=== PATIENT | female | born 1970 | race Caucasian/White ===

== ENCOUNTER → 2020-04-17 | Outpatient (CLI) | payer OTHER ==
[~2020-04-17] MED LIST: FLOMAX0.4 MG PO; IBUPROFEN 600600 M1 PO; NORCO 5-325 TA1 EAC1 PO
== END ==
LOC: LAB 13:26
PROVIDERS: ATTEND Nurse Practitioner
DX: Z20.828 Contact with and (suspected) exposure to other viral communicable diseases (principal)

== ENCOUNTER → 2020-11-24 | Outpatient (CLI) | payer OTHER | LOC: MRI 14:54 | PROVIDERS: ATTEND Family Medicine | DX: M47.27 Other spondylosis with radiculopathy, lumbosacral region (principal); M47.26 Other spondylosis with radiculopathy, lumbar region; G96.191 Perineural cyst ==

== ENCOUNTER → 2021-06-12 | Outpatient (CLI) | payer OTHER ==
[~2021-06-12] MED LIST changes: +HYDROCODON-ACE1 EAC7 PO; +IBUPROFEN 800800 M1 PO; +ZOFRAN ODT4 MG DISSOLVE
== END ==
LOC: CAT 09:45
PROVIDERS: ATTEND Nurse Practitioner
DX: N20.1 Calculus of ureter (principal); N94.89 Other specified conditions associated with female genital organs and menstrual cycle; R31.0 Gross hematuria

== ENCOUNTER 2021-06-16 11:25 | Emergency (ER) | payer OTHER ==
[~2021-06-16] VITALS: Ht 172.7 cm; Wt 90.7 kg
[2021-06-16 12:36] LABS: URINE BLOOD 3+ (Negative); URINE CLARITY CLEAR; URINE COLOR YELLOW; URINE GLUCOSE-RANDOM* NEGATIVE (Negative); URINE KETONES NEGATIVE (Negative); URINE LEUKOCYTES-REFLEX NEGATIVE (Negative); URINE NITRITE-REFLEX NEGATIVE (Negative); URINE PROTEIN (DIPSTICK) 1+ (Negative); URINE SPECIFIC GRAVITY >= 1.030 (1.005-1.035); URINE UROBILINOGEN 0.2 E.U./dl (0.2-1.0)
[2021-06-16 12:39] LABS: ICTOTEST (BILI CONFIRMATORY) Negative (Negative); URINE BILIRUBIN NEGATIVE (Negative)
[2021-06-16 12:48] LABS: BACTERIA-REFLEX 1-9 Few /HPF (None Seen); CASTS None Seen /LPF (None Seen); CRYSTALS None Seen /LPF (None Seen); MUCUS 0-3 Light strn/LPF (None Seen); SQUAMOUS >10 Many /LPF (0-3); URINE WBC-REFLEX 0-5 Rare /HPF (0-5)
[2021-06-16] MEDS ORDERED: FLOMAX0.4 MG PO (14:45)
[2021-06-16 15:02] VITALS: BP 154/82
== END 2021-06-16 15:03 | disposition home or self-care (01) ==
LOC: ER 11:25
PROVIDERS: Nurse Practitioner
DX: N20.0 Calculus of kidney (principal); Z90.710 Acquired absence of both cervix and uterus

== ENCOUNTER → 2021-06-23 | Outpatient (CLI) | payer OTHER | LOC: RAD 12:43 | PROVIDERS: ATTEND Urology | DX: N20.1 Calculus of ureter (principal) ==

== ENCOUNTER → 2021-07-17 | Day surgery (SDC) | payer OTHER ==
[~2021-07-17] VITALS: Ht 172.7 cm; Wt 93.4 kg
[~2021-07-17] MED LIST changes: +VITAMIN C500 M2 PO; +VITAMIN D3125 MC1 PO
[2021-07-17 12:14] VITALS: BP 134/69
[2021-07-17 14:24] VITALS: BP 134/69
== END | disposition home or self-care (01) ==
LOC: OR 07-01 10:16
PROVIDERS: ATTEND Urology
DX: N20.1 Calculus of ureter (principal); Z20.822 Contact with and (suspected) exposure to COVID-19
CPT/HCPCS: 50010; 50101; 51767; 56674; 56815; 57160; 58565; 58732; 62110; 62900; 70005